=== PATIENT | female | born 1940 | race Caucasian/White ===

== ENCOUNTER 2021-06-28 10:07 | Observation (INO) ==
[2021-06-28 10:39] LABS: POC Blood Urea Nitrogen 36 mg/dL (6-20); POC CO2 31 mmol/L (22-30); POC Calcium, Ionized 1.22 mmEq/L (1.16-1.32); POC Chloride 93 mEq/L (96-108); POC Creatinine 1.5 mg/dL (0.6-1.2); POC Glucose, Random 164 mg/dL (70-105); POC Hematocrit 39 % (36-48); POC Potassium 4.7 mEql/L (3.3-5.1); POC Sodium 133 mEq/L (133-145)
[2021-06-28 11:06] LABS: Hematocrit 40.6 % (34.1-44.9); Hemoglobin 12.6 g/dL (11.2-15.7); Mean Cell Volume 95.8 fL (80.0-100.0); Mean Platelet Volume 10.4 fL (7.4-10.4); Platelet Count 326 K/mcL (140-440); RBC 4.24 M/mcL (3.59-5.38); Red Cell Distribution Width 12.2 % (11.5-14.5); WBC 10.4 K/mcL (4.5-11.0)
[2021-06-28] MEDS ORDERED: 0.9 % SODIUM CHLORIDE 1,000 ML IV ONE (11:18)
--- NOTE | 2021-06-28 11:18 | Emergency Department Note ---
Weakness HPI General Chief complaint: Weakness Time Seen by Provider: 06/28/21 10:14 Source: EMS Mode of arrival: EMS Limitations: no limitations History of Present Illness HPI Narrative: 81-year-old female with history of O2 dependent COPD presents with acute onset weakness and syncopal event this morning after getting up and walking to the bathroom. She does not recall losing consciousness, but did have a fall to the ground stating that her legs gave out. Family lifted her off the floor and assisted her with walking to the bathroom, and noted that her legs gave out a second time. She leaned forward on the bathroom sink and family noted that she syncopized. Family noted that she became pale and diaphoretic. She did not hit her head. Patient is not on blood thinners. Patient denies preceding heart palpitations, lightheadedness or dizziness. She does c/o frequent diarrhea over the last week. She was recently treated for acute COPD exacerbation and finished her antibiotics a week ago. She denies associated chest pain or shortness of breath. Denies cardiac history or CAD. Patient takes multiple antihypertensives, but has not taken these this morning. Patient has had multiple loose stools all week. She denies melena or hematochezia. No previous history of GI bleeding. Denies abdominal pain. Denies nausea or vomiting. Had an upper endoscopy in 04/2021 which showed no significant findings. NIHSS is 0. EKG shows sinus rhythm with rate of 67 bpm. QTC is 489 ms. There is no worrisome ST deviation to suggest ischemia. There are nonspecific ST findings with T wave inversions in aVL. Related Data Home Medications Medication Instructions Recorded Confirmed aspirin 81 mg tablet,delayed 81 mg PO QDAY tab 10/23/14 06/28/21 release magnesium oxide 400 mg PO QDAY cap 06/27/17 06/28/21 [id number] 4 cap PO TID cap 02/28/19 06/28/21 36,000-114,000-180,000 unit capsule,delay rel (Creon) omega 4-eqy-pee-fish oil 1,200 mg 1 cap PO DAILY 12/02/19 06/28/21 (144 mg-216 mg) capsule (Fish Oil) calcium carbonate 1,200 mg PO QDAY 08/06/20 06/28/21 cholecalciferol (vitamin D3) 25 2,000 unit PO QDAY cap 08/06/20 06/28/21 mcg (1,000 unit) capsule desipramine 10 mg tablet 10 mg PO QDAY tab 08/06/20 06/28/21 dextromethorphan-guaifenesin 1 tab PO .q6 PRN 09/18/20 06/28/21 [Mucinex DM] ipratropium bromide 42 mcg (0.06 2 spray INTRANASAL TID 09/18/20 06/28/21 %) nasal spray diphenhydramine 25 1 tab PO QHS PRN 06/28/21 06/28/21 mg-acetaminophen 500 mg tablet (Tylenol PM Extra Strength) Previous Rx's Medication Instructions Recorded diclofenac sodium 1 % topical gel 2 g TOPICAL QID #100 g 10/22/20 (Arthritis Pain (diclofenac)) tiotropium bromide 2.5 See Rx Instructions .ROUTE 01/05/21 mcg/actuation mist for inhalation .COMPLEX #12 g (Spiriva Respimat) omeprazole 40 mg capsule,delayed 40 mg PO QDAY #90 cap 02/01/21 release metoprolol succinate 25 mg 50 mg PO QDAY #180 tab 02/24/21 tablet,extended release 24 hr furosemide 20 mg tablet (Lasix) 20 mg PO QDAY #90 tab 03/23/21 fluoxetine 20 mg capsule (Prozac) 20 mg PO QDAY #90 cap 03/25/21 propranolol 60 mg capsule,24 60 mg PO QDAY #90 cap 03/29/21 hr,extended release ipratropium 20 mcg-albuterol 100 See Rx Instructions .ROUTE 05/29/21 mcg/actuation mist for inhalation .COMPLEX #4 g (Combivent Respimat) atorvastatin 80 mg tablet 80 mg PO QDAY #90 tab 06/04/21 fluticasone 250 mcg-salmeterol 50 1 inh INHALATION Q12H 90 Days #180 06/22/21 mcg/dose blistr powdr for ea inhalation (Advair Diskus) Allergies Allergy/AdvReac Type Severity Reaction Status Date / Time Raloxifene [From EVISTA] Allergy Unknown THROMBUS Verified 06/28/21 10:14 Review of Systems ROS ROS Narrative: Narrative: All systems ED: reviewed and negative except as stated. PFSH Narrative Patient History Narrative: Narrative: Medical/Surgical/Family History All Active Problems GIB (gastrointestinal bleeding) (Acute) Syncope (Acute) Orthostatic syncope (Acute) Cough (Acute) Tendonitis of wrist, right (Acute) Right wrist pain (Acute) Chronic headaches (Acute) COPD (chronic obstructive pulmonary disease) (Acute) Medicare annual wellness visit, subsequent (Acute) History of COPD (Acute) Sinusitis (Acute) Chest wall pain (Acute) Chest pain (Acute) Pancreatic insufficiency (Chronic) COPD exacerbation (Acute) Pneumonia (Acute) Hypoxia (Acute) Anemia in chronic kidney disease (CKD) (Chronic) HLD (hyperlipidemia) (Acute) Chronic kidney disease, stage III (moderate) (Chronic) Adult health maintenance (Chronic) Major depressive disorder, recurrent, in full remission (Chronic) Viral Warts (Chronic) Vitamin D deficiency (Chronic) Tobacco abuse (Chronic) Respiratory failure, chronic (Chronic) Renal osteodystrophy (Chronic) Pulmonary hypertension (Chronic) Peripheral neuropathy (Chronic) Osteoporosis (Chronic) Malignant neoplasm of trachea, bronchus, and lung (Chronic) Hyperlipidemia (Chronic) Hypertension, essential (Chronic) Esophagitis, reflux (Chronic) Emphysema lung (Chronic) Edema (Chronic) Diverticulosis of colon (Chronic) 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) DDD (degenerative disc disease) (Chronic) CHF (congestive heart failure) (Chronic) Colon polyps (Chronic) Chronic kidney disease, stage III (moderate) (Chronic) Bipolar I disorder, mild, current or most recent episode depressed, in full remission (Chronic) Back pain (Chronic) Anemia in chronic kidney disease (CKD) (Chronic) Alcohol abuse (Chronic) Medical History Adult health maintenance Alcohol abuse Anemia in chronic kidney disease (CKD) 10/08/2012 Anemia in chronic renal disease Back pain Mechanical low Bipolar I disorder, mild, current or most recent episode depressed, in full remission Cellulitis and abscess Cellulitis and abscess; upper arm and forearm Chest pain Chest wall pain CHF (congestive heart failure) started about 2013, 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 She is on Advair spiriva and combivent, able to carry out ADL , on oxygen therapy, no recent ER visits or prednisone use, continue same. Epigastric pain Esophagitis, reflux cough when lying down, additio of famotid should help. Hematuria History of COPD Hyperkalemia Hyperlipidemia on gemfibrozil and atorvastatin, add fish oil TG ok, LDL ok, Hypertension, essential Hyponatremia 06/04/2012 Hypopotassemia Hypopotassemia/Hypokalemia Lung nodule Major depressive disorder, recurrent episode, in full remission Malignant neoplasm of trachea, bronchus, and lung Medicare annual wellness visit, subsequent Muscle spasm Obstructive chronic bronchitis with acute exacerbation 08/12/2013 Osteoporosis Otalgia Pain in limb Pancreatic insufficiency Peripheral neuropathy Pulmonary hypertension 06/04/2012 Renal osteodystrophy Respiratory failure, chronic 07/07/2014; Type 2, on oxygen, goal oxygen 87-94 Sinusitis Tobacco abuse Tobacco abuse - smoking Quit smoking May 2012 Type 2 diabetes mellitus with neurological manifestation Urinary tract disorder Urethral and urinary tract disorder Viral Warts refer to dermatology for excision Vitamin D deficiency Weight gain, abnormal 08/12/2013 Surgical History History of back surgery 2 previous lower back surgeries 1983 and the other 1985 History of cholecystectomy 1974 History of colonoscopy 11/19/2013; TA History of hysterectomy 1973 Family History Sister Malignant neoplasm of breast 2 sisters Diabetes mellitus 1 sister Father of unknown cause Mother , in her 90s of unknown cause Brother , from thrombophlebitis Presence of cardiac pacemaker Thrombophlebitis Social History Smoking Status: Former smoker Alcohol Intake Frequency: former alcohol drinker Substance Use: does not use Exam Narrative Narrative: General: AOx3, NAD, nontoxic appearing. Pleasant and conversant. HEENT: PERRL, EOMI, normocephalic. Moist mucous membranes. Normal facies and normal dentition. Chest: Symmetric, no pain to palpation Respiratory: Lungs clear to auscultation bilaterally. No respiratory distress. Unlabored breathing. Heart: Regular rate and rhythm, no murmurs/clicks/rubs. Abdomen: Non-tender, Non distended, normal bowel tones. No organomegaly. No rebound tenderness Extremities: Warm and well perfused. No edema. DP 2+ bilaterally. No venous stasis. Neuro: No focal deficits. Cranial nerves II-XII grossly normal. Skin: Warm dry, no rashes or lesions, no cyanosis. Psych: Normal mood and affect Heme/Lymph: No abnormal bruising General Limitations: no limitations Course Course Course Narrative: 81-year-old female presents with weakness and witnessed syncopal event this morning without head trauma. Reevaluation(s) Reevaluation #1: Basic labs, EKG, troponin, chest x-ray, fecal leukocyte and C. difficile Check orthostatics Time: 11:47 Reevaluation #2: Orthostatics are positive---> give 1 L IV fluids Patient has had 3 loose stools since her evaluation here in the ER department. The technical services specialist got her up to go to the bathroom and she had a near syncopal event. Stool was noted to have joanna bright red blood and is guaiac positive. CBC H&H is 12.6/40.6--> given she is significantly symptomatic we will type and screen and add on a lactate to rule out ischemic bowel. CMP with elevated BUN of 36, creatinine is 1.5, which is her baseline, and blood glucose is 166. Chest x-ray without infiltrates and bilateral atelectasis Reevaluation #3: Case has been discussed with Dr. Segura who agrees with admission and colonoscopy tomorrow. DDx would be infectious colitis, ischemic bowel, bleeding diverticuli, other. He has asked me to add on enteric stool culture. Fecal leukocyte and C. difficile still pending. Lactic acid is 1.1. Vital Signs Vital signs: Vital Signs Temperature 96.8 F L 06/28/21 10:09 Pulse Rate 71 06/28/21 10:09 Respiratory Rate 18 06/28/21 10:09 Blood Pressure 117/69 06/28/21 10:09 Pulse Oximetry (%) 94 06/28/21 10:09 Temperature 96.8 F L 06/28/21 10:09 Pulse Rate 65 06/28/21 12:10 Respiratory Rate 19 06/28/21 12:10 Blood Pressure 129/60 06/28/21 12:10 Pulse Oximetry (%) 96 06/28/21 12:10 [facility] MDM Narrative Medical decision making narrative: Acute GI bleed Syncopal event Positive orthostatic Patient has proven that she has a GI bleed here in the ER. DDx includes infectious, ischemic, bleeding diverticuli, other. Patient has been typed and screened. Stool enterics, C. difficile, fecal leukocyte are all pending. Patient is given 1 L of IV fluids, we will continue these. Dr. Segura would like the patient admitted and she will undergo colonoscopy tomorrow. I have reached out to the hospitalist for admission. Patient is been accepted for observation admission. Lab Data Result diagrams: 06/28/21 10:25 Labs: Lab Results 06/28/21 06/28/21 06/28/21 Range/Units 10:25 10:25 11:22 WBC 10.4 (4.5-11.0) K/mcL RBC 4.24 (3.59-5.38) M/mcL Hgb 12.6 (11.2-15.7) g/dL Hct 40.6 (34.1-44.9) % POC Hct 39 (36-48) % MCV 95.8 (80.0-100.0) fL MCH 29.7 (26.0-34.0) pg MCHC 31.0 (31.0-36.0) g/dL RDW 12.2 (11.5-14.5) % Plt Count 326 (140-440) K/mcL MPV 10.4 (7.4-10.4) fL Seg Neutrophils % 66 (38-78) % Lymphocytes % 29 (15-49) % Monocytes % (Manual) 2 (1-12) % Eosinophils % (Manual) 3 (0-7) % Platelet Estimate Normal (Normal) RBC Morphology Normal (Normal) VBG Lactic Acid (0.5-2.0) mmol/L POC Sodium 133 (133-145) mEq/L POC Potassium 4.7 (3.3-5.1) mEql/L POC Chloride 93 L (96-108) mEq/L POC Total CO2 31 H (22-30) mmol/L POC BUN 36 H (6-20) mg/dL POC Creatinine 1.5 H (0.6-1.2) mg/dL POC Glucose 164 H (70-105) mg/dL POC WB Ioniz Calcium 1.22 (1.16-1.32) mmEq/L TSH (0.27-5.01) uIU/mL POC Troponin I 0 L (0.02-0.08) ng/mL 06/28/21 06/28/21 Range/Units 11:22 12:01 WBC (4.5-11.0) K/mcL RBC (3.59-5.38) M/mcL Hgb (11.2-15.7) g/dL Hct (34.1-44.9) % POC Hct (36-48) % MCV (80.0-100.0) fL MCH (26.0-34.0) pg MCHC (31.0-36.0) g/dL RDW (11.5-14.5) % Plt Count (140-440) K/mcL MPV (7.4-10.4) fL Seg Neutrophils % (38-78) % Lymphocytes % (15-49) % Monocytes % (Manual) (1-12) % Eosinophils % (Manual) (0-7) % Platelet Estimate (Normal) RBC Morphology (Normal) VBG Lactic Acid 1.1 (0.5-2.0) mmol/L POC Sodium (133-145) mEq/L POC Potassium (3.3-5.1) mEql/L POC Chloride (96-108) mEq/L POC Total CO2 (22-30) mmol/L POC BUN (6-20) mg/dL POC Creatinine (0.6-1.2) mg/dL POC Glucose (70-105) mg/dL POC WB Ioniz Calcium (1.16-1.32) mmEq/L TSH 3.26 (0.27-5.01) uIU/mL POC Troponin I (0.02-0.08) ng/mL Discharge Plan Patient/Caregiver Discharge Instructions Pt seen by PROCESSING TECH/PA only: Yes Clinical Impression: GIB (gastrointestinal bleeding), Syncope, Orthostatic syncope Patient Disposition: Xfer As Outpt/Obs ([facility]) Follow up with: Jennifer Seay DO [Primary Care Provider] - Prescriptions: No Action Spiriva Respimat 2.5 mcg/actuation mist See Rx Instructions .ROUTE .COMPLEX Qty: 12 6RF Dose Instruction: USE 2 INHALATIONS DAILY (RINSE MOUTH AFTER EACH USE) Rx Instructions: USE 2 INHALATIONS DAILY (RINSE MOUTH AFTER EACH USE) omeprazole 40 mg capsule,delayed release(DR/EC) 40 mg PO QDAY Qty: 90 1RF metoprolol succinate 25 mg tablet extended release 24 hr 50 mg PO QDAY Qty: 180 0RF furosemide [Lasix] 20 mg tablet 20 mg PO QDAY Qty: 90 1RF fluoxetine [Prozac] 20 mg capsule 20 mg PO QDAY Qty: 90 1RF propranolol 60 mg capsule,extended release 24 hr 60 mg PO QDAY Qty: 90 1RF Combivent Respimat 20-100 mcg/actuation mist See Rx Instructions .ROUTE .COMPLEX Qty: 4 1RF Dose Instruction: USE 1 INHALATION FOUR TIMES A DAY NEEDED FOR SHORTNESS OF BREATH Rx Instructions: USE 1 INHALATION FOUR TIMES A DAY NEEDED FOR SHORTNESS OF BREATH atorvastatin 80 mg tablet 80 mg PO QDAY Qty: 90 1RF fluticasone propion-salmeterol [Advair Diskus] 250-50 mcg/dose blister with device 1 inh INHALATION Q12H 90 Days Qty: 180 0RF [id number] 36,000-114,000-180,000 unit capsule,delay rel 36,000-114,000- 180,000 unit capsule,delayed release(DR/EC) 4 cap PO TID 0RF Rx Instructions: and 2 pills with snacks aspirin 81 mg tablet,delayed release (DR/EC) 81 mg PO QDAY 0RF magnesium oxide 400 mg capsule 400 mg PO QDAY 0RF cholecalciferol (vitamin D3) 25 mcg (1,000 unit) capsule 2,000 unit PO QDAY 0RF Rx Instructions: administer with meals ipratropium bromide 42 mcg (0.06 %) spray,non-aerosol 2 spray intranasal TID 0RF Rx Instructions: administer into each nostril dextromethorphan-guaifenesin [Mucinex DM] 1 tab PO .q6 PRN (Reason: PRN) 0RF desipramine 10 mg tablet 10 mg PO QDAY 0RF calcium carbonate 1,200 mg PO QDAY 0RF diclofenac sodium [Arthritis Pain (diclofenac)] 1 % gel 2 g topical QID Qty: 100 0RF Rx Instructions: apply to single elbow, wrist or hand; for hand includes palm/fingers/back of hand omega 8-ine-mml-fish oil [Fish Oil] 1,200 (144-216) mg Capsule 1 cap PO DAILY 0RF diphenhydramine-acetaminophen [Tylenol PM Extra Strength] 25-500 mg Tablet 1 tab PO QHS PRN (Reason: Sleep) 0RF
[2021-06-28] MEDS ORDERED: ONDANSETRON 4 MG/2 ML VIAL IV ONE (11:40)
[2021-06-28 11:58] LABS: Eosinophils % (Manual) 3 % (0-7); Lymphocytes % 29 % (15-49); Monocytes % (Manual) 2 % (1-12); Platelet Estimate NORMAL (Normal); RBC Morphology NORMAL (Normal); Segmented Neutrophils % 66 % (38-78)
[2021-06-28] MEDS ORDERED: 0.9 % SODIUM CHLORIDE 250 ML IV SCH (12:00)
--- NOTE | 2021-06-28 12:16 | XRay Report ---
CLINICAL INFORMATION: Cough COMPARISON: 01/23/2020 TECHNIQUE: PA and Lateral views FINDINGS: The heart size, mediastinum and pulmonary vessels are unremarkable. COPD with moderate left and moderate right basilar fibrosis or atelectasis noted. No definite infiltrates.. There are no effusions. The bones and soft tissues are within normal limits. IMPRESSION: Moderate left and mild right basilar scarring and/or atelectasis. No definite infiltrate Interpreted and Authenticated by: Tommy Santo 06/28/21
[2021-06-28 13:00] LABS: Thyroid Stimulating Hormone 3.26 uIU/mL (0.27-5.01)
--- NOTE | 2021-06-28 13:21 | Internal Med History&Physical ---
HPI History of Present Illness Patient information: Note initiated : 06/28/21 at 1:15 pm Service Date, if different from initiated Date: [] Patient: Keyla Levy a 81 y/o F admitted on for weakness. Chief Complaint: [] History of present illness: Ms. Levy is a 81 year old F presented to ED with Weakness and Fall/Syncope. Denies hitting her head. Denies chest pain shortness of breath. She has had diarrhea started about a week ago after she got on antibiotics for an upper respiratory tract infection. The diarrhea seemed to improve but then worsened again today. Sessile she has a little bit of a stomachache. In the ED she was found to have bright red blood in stool in ED, FOBT positive in ED. She was also Orthostatic in the ED. Dr. Muñoz was contacted and will do endoscopy in AM. c. diff and other stool studies are pending. Review of Systems: Pertinent positives as above plus headache. denies fever/chills/vomiting/chest pain/cough/dyspnea. Remaining 10 point review of system reviewed negative PFSH PFSH All Active Problems GIB (gastrointestinal bleeding) (Acute) Syncope (Acute) Orthostatic syncope (Acute) Cough (Acute) Tendonitis of wrist, right (Acute) Right wrist pain (Acute) Chronic headaches (Acute) COPD (chronic obstructive pulmonary disease) (Acute) Medicare annual wellness visit, subsequent (Acute) History of COPD (Acute) Sinusitis (Acute) Chest wall pain (Acute) Chest pain (Acute) Pancreatic insufficiency (Chronic) COPD exacerbation (Acute) Pneumonia (Acute) Hypoxia (Acute) Anemia in chronic kidney disease (CKD) (Chronic) HLD (hyperlipidemia) (Acute) Chronic kidney disease, stage III (moderate) (Chronic) Adult health maintenance (Chronic) Major depressive disorder, recurrent, in full remission (Chronic) Viral Warts (Chronic) Vitamin D deficiency (Chronic) Tobacco abuse (Chronic) Respiratory failure, chronic (Chronic) Renal osteodystrophy (Chronic) Pulmonary hypertension (Chronic) Peripheral neuropathy (Chronic) Osteoporosis (Chronic) Malignant neoplasm of trachea, bronchus, and lung (Chronic) Hyperlipidemia (Chronic) Hypertension, essential (Chronic) Esophagitis, reflux (Chronic) Emphysema lung (Chronic) Edema (Chronic) Diverticulosis of colon (Chronic) 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) DDD (degenerative disc disease) (Chronic) CHF (congestive heart failure) (Chronic) Colon polyps (Chronic) Chronic kidney disease, stage III (moderate) (Chronic) Bipolar I disorder, mild, current or most recent episode depressed, in full remission (Chronic) Back pain (Chronic) Anemia in chronic kidney disease (CKD) (Chronic) Alcohol abuse (Chronic) Medical History Adult health maintenance Alcohol abuse Anemia in chronic kidney disease (CKD) 10/08/2012 Anemia in chronic renal disease Back pain Mechanical low Bipolar I disorder, mild, current or most recent episode depressed, in full remission Cellulitis and abscess Cellulitis and abscess; upper arm and forearm Chest pain Chest wall pain CHF (congestive heart failure) started about 2013, patient coordinator 10/2016 Chronic headaches Chronic kidney disease, stage III (moderate) Chronic kidney disease, stage III (moderate) Colon polyps COPD (chronic obstructive pulmonary disease) Cough 01/04/2012 DDD (degenerative disc disease) Diverticulosis of colon 11/19/2013 Edema Emphysema lung Emphysema NEC; Secondary to smoking. She is on Advair spiriva and combivent, able to carry out ADL , on oxygen therapy, no recent ER visits or prednisone use, continue same. Epigastric pain Esophagitis, reflux cough when lying down, additio of famotid should help. Hematuria History of COPD Hyperkalemia Hyperlipidemia on gemfibrozil and atorvastatin, add fish oil TG ok, LDL ok, Hypertension, essential Hyponatremia 06/04/2012 Hypopotassemia Hypopotassemia/Hypokalemia Lung nodule Major depressive disorder, recurrent episode, in full remission Malignant neoplasm of trachea, bronchus, and lung Medicare annual wellness visit, subsequent Muscle spasm Obstructive chronic bronchitis with acute exacerbation 08/12/2013 Osteoporosis Otalgia Pain in limb Pancreatic insufficiency Peripheral neuropathy Pulmonary hypertension 06/04/2012 Renal osteodystrophy Respiratory failure, chronic 07/07/2014; Type 2, on oxygen, goal oxygen 87-94 Sinusitis Tobacco abuse Tobacco abuse - smoking Quit smoking May 2012 Type 2 diabetes mellitus with neurological manifestation Urinary tract disorder Urethral and urinary tract disorder Viral Warts refer to dermatology for excision Vitamin D deficiency Weight gain, abnormal 08/12/2013 Surgical History History of back surgery 2 previous lower back surgeries 1983 and the other 1985 History of cholecystectomy 1974 History of colonoscopy 11/19/2013; TA History of hysterectomy 1973 Family History Sister Malignant neoplasm of breast 2 sisters Diabetes mellitus 1 sister Father of unknown cause Mother , in her 90s of unknown cause Brother , from thrombophlebitis Presence of cardiac pacemaker Thrombophlebitis Social History marital status: smoking status: Former smoker quit date: 05/19/13 pack-years: 50 alcohol intake frequency: former alcohol drinker substance use type: does not use MEDS/ALLERGIES Home Medications and Allergies Home Medications Medication Instructions Recorded Confirmed Type aspirin 81 mg tablet,delayed 81 mg PO QDAY tab 10/23/14 06/28/21 History release magnesium oxide 400 mg PO QDAY cap 06/27/17 06/28/21 History [id number] 4 cap PO TID cap 02/28/19 06/28/21 History 36,000-114,000-180,000 unit capsule,delay rel (Creon) omega 6-qgc-gao-fish oil 1,200 mg 1 cap PO DAILY 12/02/19 06/28/21 History (144 mg-216 mg) capsule (Fish Oil) calcium carbonate 1,200 mg PO QDAY 08/06/20 06/28/21 History cholecalciferol (vitamin D3) 25 2,000 unit PO QDAY cap 08/06/20 06/28/21 History mcg (1,000 unit) capsule desipramine 10 mg tablet 10 mg PO QDAY tab 08/06/20 06/28/21 History dextromethorphan-guaifenesin 1 tab PO .q6 PRN 09/18/20 06/28/21 History [Mucinex DM] ipratropium bromide 42 mcg (0.06 2 spray INTRANASAL TID 09/18/20 06/28/21 History %) nasal spray diclofenac sodium 1 % topical gel 2 g TOPICAL QID #100 g 10/22/20 06/28/21 Rx (Arthritis Pain (diclofenac)) tiotropium bromide 2.5 See Rx Instructions .ROUTE 01/05/21 06/28/21 Rx mcg/actuation mist for inhalation .COMPLEX #12 g (Spiriva Respimat) omeprazole 40 mg capsule,delayed 40 mg PO QDAY #90 cap 02/01/21 06/28/21 Rx release metoprolol succinate 25 mg 50 mg PO QDAY #180 tab 02/24/21 06/28/21 Rx tablet,extended release 24 hr furosemide 20 mg tablet (Lasix) 20 mg PO QDAY #90 tab 03/23/21 06/28/21 Rx fluoxetine 20 mg capsule (Prozac) 20 mg PO QDAY #90 cap 03/25/21 06/28/21 Rx propranolol 60 mg capsule,24 60 mg PO QDAY #90 cap 03/29/21 06/28/21 Rx hr,extended release ipratropium 20 mcg-albuterol 100 See Rx Instructions .ROUTE 05/29/21 06/28/21 Rx mcg/actuation mist for inhalation .COMPLEX #4 g (Combivent Respimat) atorvastatin 80 mg tablet 80 mg PO QDAY #90 tab 06/04/21 06/28/21 Rx fluticasone 250 mcg-salmeterol 50 1 inh INHALATION Q12H 90 Days #180 06/22/21 06/28/21 Rx mcg/dose blistr powdr for ea inhalation (Advair Diskus) diphenhydramine 25 1 tab PO QHS PRN 06/28/21 06/28/21 History mg-acetaminophen 500 mg tablet (Tylenol PM Extra Strength) Allergies Allergy/AdvReac Type Severity Reaction Status Date / Time Raloxifene [From EVISTA] Allergy Unknown THROMBUS Verified 06/28/21 10:14 EXAM Constitutional Vitals: Temp Pulse Resp BP Pulse Ox 96.8 F L 74 23 H 141/59 98 06/28/21 10:09 06/28/21 13:01 06/28/21 13:01 06/28/21 13:01 06/28/21 13:01 Exam: General: Alert, Awake, No acute Distress Eyes/N/T: EOMI, PERRL, Head/Neck: neck supple, normocephalic atraumatic CV: RRR, No murmurs, normal s1/s2 Pulm: mild b/l wheezing, no rhonchi/rales Abd: soft, nontender, +BS x4 Ext: no clubbing/cyanosis/edema Neuro: Alert, no focal deficits, moves all extremities, CN 2-12 grossly intact, symmetrical strength b/l upper/lower, sensations intact b/l upper/lower Skin: warm/dry DATA Data Completed and Pending Labs: Labs from last 24 hours 06/28/21 06/28/21 06/28/21 12:01 11:22 11:22 WBC RBC Hgb Hct POC Hct MCV MCH MCHC RDW Plt Count MPV Seg Neutrophils % Lymphocytes % Monocytes % (Manual) Eosinophils % (Manual) Platelet Estimate RBC Morphology VBG Lactic Acid 1.1 POC Sodium POC Potassium POC Chloride POC Total CO2 POC BUN POC Creatinine POC Glucose POC WB Ioniz Calcium TSH 3.26 POC Troponin I 0 L 06/28/21 06/28/21 10:25 10:25 WBC 10.4 RBC 4.24 Hgb 12.6 Hct 40.6 POC Hct 39 MCV 95.8 MCH 29.7 MCHC 31.0 RDW 12.2 Plt Count 326 MPV 10.4 Seg Neutrophils % 66 Lymphocytes % 29 Monocytes % (Manual) 2 Eosinophils % (Manual) 3 Platelet Estimate Normal RBC Morphology Normal VBG Lactic Acid POC Sodium 133 POC Potassium 4.7 POC Chloride 93 L POC Total CO2 31 H POC BUN 36 H POC Creatinine 1.5 H POC Glucose 164 H POC WB Ioniz Calcium 1.22 TSH POC Troponin I A/P Narrative A/P Narrative: A: *GI Bleed, likely Lower: *Orthostatic Hypotension/Syncope: *Generalized weakness/Fallin/2 above *COPD w/chronic hypoxia (2L@home): *Hyperkalemia, mild: *CKD IIIb: *HTN: *Depression/Anxiety/bipolar: *GERD: P: -IVF, clear liquid diet -Dr. Muñoz for consult -hold ASA -hold home Lasix for orthostatic hypotension, hold BB today -home O2 supp -cont psych meds -pt/ot -CM for placement needs -ppx: SCD (no chemical d/t bleeding) / home ppi Time Spent With Patient Time: Total time spent is greater than 50% in coordination of care (as documented) at patient's floor/unit and/or counseling patient:
[2021-06-28] MEDS ORDERED: POTASSIUM CHLORIDE 40 MEQ in DEXTROSE 5% IN WATER 500 ML IV PRN (13:52)
[2021-06-28] MEDS ORDERED: ONDANSETRON 4 MG/2 ML VIAL IV PRN (13:52)
[2021-06-28] MEDS ORDERED: POTASSIUM CHLORIDE 20 MEQ TABLET PO PRN ×2 (13:52)
[2021-06-28] MEDS ORDERED: SODIUM POLYSTYRENE SULFONATE 15 GM/60 ML SUSPENSION PO ONE (13:52)
[2021-06-28] MEDS ORDERED: hydrALAZINE 20 MG/ML VIAL IV PRN (13:52)
[2021-06-28] MEDS ORDERED: IPRATROPIUM/ALBUTEROL 3 ML AMPUL.NEB NEB PRN (13:52)
[2021-06-28] MEDS ORDERED: MAGNESIUM SULFATE 2 GM/50 ML BAG IV PRN (13:52)
[2021-06-28] MEDS ORDERED: ACETAMINOPHEN 325 MG TABLET PO PRN (13:52)
--- NOTE | 2021-06-28 15:29 | Internal Medicine Consult Note ---
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 Keyla had been on a 5 day course of Augmentin for URI and developed diarrhea for a few days. However, for the last 2 days, her daughter (who is also her caregiver) reports she has been constipated. This morning, Keyla felt the urge to have a BM and had a syncopal episode, prompting her daughter to call EMS. She had a large BM at the hospital where [facility] noted flecks of red blood in the stool and guaiac was positive. Stool has been collected with c. difficile assay, fecal leukocyte smear, and enteric pathogen panel are pending. Last colonoscopy in 2019 revealed adenomatous colon polyps, which were removed. cc:: CC: Darnell Olson Review of Systems ROS unobtainable: due to mental status PFSH PFSH All Active Problems GIB (gastrointestinal bleeding) (Acute) Syncope (Acute) Orthostatic syncope (Acute) Cough (Acute) Tendonitis of wrist, right (Acute) Right wrist pain (Acute) Chronic headaches (Acute) COPD (chronic obstructive pulmonary disease) (Acute) Medicare annual wellness visit, subsequent (Acute) History of COPD (Acute) Sinusitis (Acute) Chest wall pain (Acute) Chest pain (Acute) Pancreatic insufficiency (Chronic) COPD exacerbation (Acute) Pneumonia (Acute) Hypoxia (Acute) Anemia in chronic kidney disease (CKD) (Chronic) HLD (hyperlipidemia) (Acute) Chronic kidney disease, stage III (moderate) (Chronic) Adult health maintenance (Chronic) Major depressive disorder, recurrent, in full remission (Chronic) Viral Warts (Chronic) Vitamin D deficiency (Chronic) Tobacco abuse (Chronic) Respiratory failure, chronic (Chronic) Renal osteodystrophy (Chronic) Pulmonary hypertension (Chronic) Peripheral neuropathy (Chronic) Osteoporosis (Chronic) Malignant neoplasm of trachea, bronchus, and lung (Chronic) Hyperlipidemia (Chronic) Hypertension, essential (Chronic) Esophagitis, reflux (Chronic) Emphysema lung (Chronic) Edema (Chronic) Diverticulosis of colon (Chronic) 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) DDD (degenerative disc disease) (Chronic) CHF (congestive heart failure) (Chronic) Colon polyps (Chronic) Chronic kidney disease, stage III (moderate) (Chronic) Bipolar I disorder, mild, current or most recent episode depressed, in full remission (Chronic) Back pain (Chronic) Anemia in chronic kidney disease (CKD) (Chronic) Alcohol abuse (Chronic) Medical History Adult health maintenance Alcohol abuse Anemia in chronic kidney disease (CKD) 10/08/2012 Anemia in chronic renal disease Back pain Mechanical low Bipolar I disorder, mild, current or most recent episode depressed, in full remission Cellulitis and abscess Cellulitis and abscess; upper arm and forearm Chest pain Chest wall pain CHF (congestive heart failure) started about 2013, 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 She is on Advair spiriva and combivent, able to carry out ADL , on oxygen therapy, no recent ER visits or prednisone use, continue same. Epigastric pain Esophagitis, reflux cough when lying down, additio of famotid should help. Hematuria History of COPD Hyperkalemia Hyperlipidemia on gemfibrozil and atorvastatin, add fish oil TG ok, LDL ok, Hypertension, essential Hyponatremia 06/04/2012 Hypopotassemia Hypopotassemia/Hypokalemia Lung nodule Major depressive disorder, recurrent episode, in full remission Malignant neoplasm of trachea, bronchus, and lung Medicare annual wellness visit, subsequent Muscle spasm Obstructive chronic bronchitis with acute exacerbation 08/12/2013 Osteoporosis Otalgia Pain in limb Pancreatic insufficiency Peripheral neuropathy Pulmonary hypertension 06/04/2012 Renal osteodystrophy Respiratory failure, chronic 07/07/2014; Type 2, on oxygen, goal oxygen 87-94 Sinusitis Tobacco abuse Tobacco abuse - smoking Quit smoking May 2012 Type 2 diabetes mellitus with neurological manifestation Urinary tract disorder Urethral and urinary tract disorder Viral Warts refer to dermatology for excision Vitamin D deficiency Weight gain, abnormal 08/12/2013 Surgical History History of back surgery 2 previous lower back surgeries 1983 and the other 1985 History of cholecystectomy 1974 History of colonoscopy 11/19/2013; TA History of hysterectomy 1973 Family History Sister Malignant neoplasm of breast 2 sisters Diabetes mellitus 1 sister Father of unknown cause Mother , in her 90s of unknown cause Brother , from thrombophlebitis Presence of cardiac pacemaker Thrombophlebitis Social History marital status: smoking status: Former smoker quit date: 05/19/13 pack-years: 50 alcohol intake frequency: former alcohol drinker substance use type: does not use MEDS/ALLERGIES Home Medications and Allergies Home Medications Medication Instructions Recorded Confirmed Type aspirin 81 mg tablet,delayed 81 mg PO QDAY tab 10/23/14 06/28/21 History release magnesium oxide 400 mg PO QDAY cap 06/27/17 06/28/21 History [id number]-hzyrinqx-[id number] 4 cap PO TID cap 02/28/19 06/28/21 History 36,000-114,000-180,000 unit capsule,delay rel (Creon) omega 5-gbw-qma-fish oil 1,200 mg 1 cap PO DAILY 12/02/19 06/28/21 History (144 mg-216 mg) capsule (Fish Oil) calcium carbonate 1,200 mg PO QDAY 08/06/20 06/28/21 History cholecalciferol (vitamin D3) 25 2,000 unit PO QDAY cap 08/06/20 06/28/21 History mcg (1,000 unit) capsule desipramine 10 mg tablet 10 mg PO QDAY tab 08/06/20 06/28/21 History dextromethorphan-guaifenesin 1 tab PO .q6 PRN 09/18/20 06/28/21 History [Mucinex DM] ipratropium bromide 42 mcg (0.06 2 spray INTRANASAL TID 09/18/20 06/28/21 History %) nasal spray diclofenac sodium 1 % topical gel 2 g TOPICAL QID #100 g 10/22/20 06/28/21 Rx (Arthritis Pain (diclofenac)) tiotropium bromide 2.5 See Rx Instructions .ROUTE 01/05/21 06/28/21 Rx mcg/actuation mist for inhalation .COMPLEX #12 g (Spiriva Respimat) omeprazole 40 mg capsule,delayed 40 mg PO QDAY #90 cap 02/01/21 06/28/21 Rx release metoprolol succinate 25 mg 50 mg PO QDAY #180 tab 02/24/21 06/28/21 Rx tablet,extended release 24 hr furosemide 20 mg tablet (Lasix) 20 mg PO QDAY #90 tab 03/23/21 06/28/21 Rx fluoxetine 20 mg capsule (Prozac) 20 mg PO QDAY #90 cap 03/25/21 06/28/21 Rx propranolol 60 mg capsule,24 60 mg PO QDAY #90 cap 03/29/21 06/28/21 Rx hr,extended release ipratropium 20 mcg-albuterol 100 See Rx Instructions .ROUTE 05/29/21 06/28/21 Rx mcg/actuation mist for inhalation .COMPLEX #4 g (Combivent Respimat) atorvastatin 80 mg tablet 80 mg PO QDAY #90 tab 06/04/21 06/28/21 Rx fluticasone 250 mcg-salmeterol 50 1 inh INHALATION Q12H 90 Days #180 06/22/21 06/28/21 Rx mcg/dose blistr powdr for ea inhalation (Advair Diskus) diphenhydramine 25 1 tab PO QHS PRN 06/28/21 06/28/21 History mg-acetaminophen 500 mg tablet (Tylenol PM Extra Strength) Allergies Allergy/AdvReac Type Severity Reaction Status Date / Time Raloxifene [From EVISTA] Allergy Unknown THROMBUS Verified 06/28/21 10:14 EXAM Constitutional Vitals: Temp Pulse Resp BP Pulse Ox 96.8 F L 72 21 136/77 96 06/28/21 10:09 06/28/21 14:31 06/28/21 14:31 06/28/21 14:31 06/28/21 14:31 General appearance: average body habitus and no acute distress Head Head exam: Present atraumatic, normal inspection and normocephalic Eye Eye exam: Present normal appearance Neck Neck exam: Present normal inspection Respiratory Respiratory exam: Present normal respiratory exam and CTAB; Absent accessory muscle use GI/Abdominal GI/Abdominal exam: Present normal bowel sounds; Absent hernia, mass, organomegaly or tenderness Expanded GI/Abdominal Exam GI/Abdominal exam: Absent ascites Neurological Exam Additional comments: patient sleepy, but rousable. DATA Data Completed and Pending Labs: Labs from last 24 hours 06/28/21 06/28/21 06/28/21 12:01 11:22 11:22 WBC RBC Hgb Hct POC Hct MCV MCH MCHC RDW Plt Count MPV Seg Neutrophils % Lymphocytes % Monocytes % (Manual) Eosinophils % (Manual) Platelet Estimate RBC Morphology VBG Lactic Acid 1.1 POC Sodium POC Potassium POC Chloride POC Total CO2 POC BUN POC Creatinine POC Glucose POC WB Ioniz Calcium TSH 3.26 POC Troponin I 0 L 06/28/21 06/28/21 10:25 10:25 WBC 10.4 RBC 4.24 Hgb 12.6 Hct 40.6 POC Hct 39 MCV 95.8 MCH 29.7 MCHC 31.0 RDW 12.2 Plt Count 326 MPV 10.4 Seg Neutrophils % 66 Lymphocytes % 29 Monocytes % (Manual) 2 Eosinophils % (Manual) 3 Platelet Estimate Normal RBC Morphology Normal VBG Lactic Acid POC Sodium 133 POC Potassium 4.7 POC Chloride 93 L POC Total CO2 31 H POC BUN 36 H POC Creatinine 1.5 H POC Glucose 164 H POC WB Ioniz Calcium 1.22 TSH POC Troponin I A/P Assessment and plan (1) GIB (gastrointestinal bleeding): Assessment and plan: I reviewed her case with Dr. Muñoz. She will be admitted and prepped for inpatient colonoscopy. Differential diagnosis includes ischemic colitis, infectious colitis including c difficile, diverticular bleed (less likely), etc. Status: Acute (2) Syncope: Status: Acute Time Spent With Patient Time: Total time spent is greater than 50% in coordination of care (as documented) at patient's floor/unit and/or counseling patient: Total time spent with greater than 50% in coordination of care (as documented) at patient's floor/unit and/or counseling patient:: 15 - 24 minutes
[2021-06-28] MEDS: 0.9 % SODIUM CHLORIDE 10 ML SYRINGE IV SCH ×2 (16:06→21:02)
[2021-06-28] MEDS: 0.9 % SODIUM CHLORIDE 1,500 ML IV SCH (16:12)
[2021-06-28] MEDS: LIPASE/PROTEASE/AMYLASE 1 CAP CAPSULE PO SCH (16:38)
[2021-06-28] MEDS: DICLOFENAC SODIUM 1% TOPICAL GEL TOPICAL SCH ×2 (16:38→21:02)
[2021-06-28] MEDS ORDERED: diphenhydrAMINE 25 MG CAPSULE PO PRN (21:00)
[2021-06-28] MEDS: FLUTICASONE/SALMETEROL 250/50 INHALER #14 INH SCH (21:02)
[2021-06-28] MEDS ORDERED: KETAMINE 50 MG/ML ML IV PRN (21:12)
[2021-06-28] MEDS ORDERED: MIDAZOLAM 2 MG/2 ML VIAL IV SCH (21:15)
[2021-06-28] MEDS ORDERED: PEG 3350/NA SULF,BICARB,CL/KCL 4,000 ML ORAL.SOL PO SCH (21:15)
[2021-06-28] MEDS ORDERED: PROPOFOL 200 MG/20 ML VIAL IV SCH (21:15)
[2021-06-28 22:10] LABS: Basophils # (Auto) 0.02 K/mcL (0.00-0.30); Basophils % (Auto) 0.1 % (0.0-2.0); Eosinophils # (Auto) 0.07 K/mcL (0.00-0.70); Eosinophils % (Auto) 0.5 % (0.0-7.0); Hematocrit 35.7 % (34.1-44.9); Hemoglobin 11.6 g/dL (11.2-15.7); Lymphocytes # (Auto) 1.26 K/mcL (1.50-4.80); Lymphocytes % (Auto) 8.7 % (15.5-49.0); Mean Cell Volume 93.9 fL (80.0-100.0); Mean Corpuscular HGB Conc 32.5 g/dL (31.0-36.0); Mean Platelet Volume 10.1 fL (7.4-10.4); Monocytes # (Auto) 0.89 K/mcL (0.10-0.90); Monocytes % (Auto) 6.1 % (1.0-12.0); Neutrophils % (Auto) 84.6 % (38.0-78.0); Platelet Count 265 K/mcL (140-440); Red Cell Distribution Width 12.1 % (11.5-14.5); WBC 14.5 K/mcL (4.5-11.0)
[2021-06-29] MEDS: 0.9 % SODIUM CHLORIDE 10 ML SYRINGE IV SCH ×3 (04:29→20:21)
[2021-06-29] MEDS: LIPASE/PROTEASE/AMYLASE 1 CAP CAPSULE PO SCH ×3 (07:15→17:08)
[2021-06-29] MEDS: DICLOFENAC SODIUM 1% TOPICAL GEL TOPICAL SCH ×4 (07:44→20:12)
[2021-06-29 07:45] LABS: Basophils # (Auto) 0.02 K/mcL (0.00-0.30); Basophils % (Auto) 0.1 % (0.0-2.0); Eosinophils # (Auto) 0.05 K/mcL (0.00-0.70); Eosinophils % (Auto) 0.4 % (0.0-7.0); Hematocrit 36.4 % (34.1-44.9); Hemoglobin 11.7 g/dL (11.2-15.7); Lymphocytes # (Auto) 1.46 K/mcL (1.50-4.80); Lymphocytes % (Auto) 10.7 % (15.5-49.0); Mean Cell Volume 93.8 fL (80.0-100.0); Mean Corpuscular HGB Conc 32.1 g/dL (31.0-36.0); Mean Platelet Volume 10.5 fL (7.4-10.4); Monocytes # (Auto) 0.78 K/mcL (0.10-0.90); Monocytes % (Auto) 5.7 % (1.0-12.0); Neutrophils % (Auto) 83.1 % (38.0-78.0); Platelet Count 261 K/mcL (140-440); RBC 3.88 M/mcL (3.59-5.38); WBC 13.7 K/mcL (4.5-11.0)
[2021-06-29] MEDS: OMEPRAZOLE 20 MG CAPSULE PO SCH (07:48)
[2021-06-29] MEDS: FLUoxetine HCL 20 MG CAPSULE PO SCH (07:49)
[2021-06-29] MEDS: METOPROLOL SUCCINATE 25 MG TAB.XL.24H PO SCH (07:49)
[2021-06-29] MEDS: ATORVASTATIN 40 MG TABLET PO SCH (07:49)
[2021-06-29] MEDS: DESIPRAMINE 10 MG PO SCH (07:49)
[2021-06-29] MEDS: FLUTICASONE/SALMETEROL 250/50 INHALER #14 INH SCH ×3 (07:50→20:37)
--- NOTE | 2021-06-29 07:55 | Internal Med Progress Note ---
SUBJECTIVE Subjective Patient information: Note initiated : 06/29/21 at 7:53 am Service Date, if different from initiated Date: [] Patient: Keyla Levy a 81 y/o F admitted on 06/28/21 for weakness. Chief Complaint: [] Interval history: History of present illness: Ms. Levy is a 81 year old F presented to ED with Weakness and Fall/Syncope. Denies hitting her head. Denies chest pain shortness of breath. She has had diarrhea started about a week ago after she got on antibiotics for an upper respiratory tract infection. The diarrhea seemed to improve but then worsened again today. Sessile she has a little bit of a stomachache. In the ED she was found to have bright red blood in stool in ED, FOBT positive in ED. She was also Orthostatic in the ED. Dr. Muñoz was contacted and will do endoscopy in AM. c. diff and other stool studies are pending. 06/29 Poor sleep because of bowel prep but otherwise no new complaints. C. difficile test negative. Stool culture negative. Afebrile. Mild hyponatremia. Review of Systems: denies headache/fever/chills/nausea/vomiting/chest or abdominal pain/cough/dyspnea. Otherwise see above. Constitutional Vitals: Vital Signs Temp Pulse Resp BP Pulse Ox 97.5 F 92 H 20 139/70 96 06/29/21 06:47 06/29/21 06:47 06/29/21 06:47 06/29/21 06:47 06/29/21 06:47 Period Temp Pulse Resp BP Sys/Bolanos Pulse Ox Last 24 Hr 96.8 F-98.8 F 61-105 14-27 100-156/55-99 90-99 Intake and Output 06/28/21 06/29/21 06/29/21 21:59 05:59 13:59 Intake Total 400 Output Total 800 3275 Balance -800 -2875 Weight 77.791 kg Intake & Output: Intake & Output 06/28/21 06/29/21 06/29/21 21:59 05:59 13:59 Intake Total 400 Output Total 800 3275 Balance -800 -2875 Weight 77.791 kg Intake: Oral 400 Output: Urine Catheter Amount 800 Straight Cath #2 400 Void Amount 525 Urine/Stool Mix 2750 Other: Urine Appearance Clear Small Blood Clots Straight Cath #2 Clear Urine Color Pale Blood Tinged Straight Cath #2 Pale Urine Odor Normal Straight Cath #2 Normal Stool Size Small Small Stool Color Bright Red Blood Brown Stool Consistency Soft Liquid Liquid Watery Exam: General: Alert, Awake, No acute Distress Eyes/N/T: EOMI, , Head/Neck: neck supple, CV: RRR, No murmurs, Pulm: mild b/l wheezing, no rhonchi/rales Abd: soft, nontender, +BS x4 Ext: no clubbing/cyanosis, trace b/l LE edema Neuro: Alert, no focal deficits, moves all extremities, Skin: warm/dry OBJ DATA Labs CBC & Chem 7: 06/29/21 05:36 06/29/21 05:36 Labs: Abnormal Lab Results 06/29/21 06/28/21 06/28/21 05:36 21:38 11:22 WBC 13.7 H 14.5 H MPV 10.5 H Neut % (Auto) 83.1 H 84.6 H Lymph % (Auto) 10.7 L 8.7 L Lymph # (Auto) 1.46 L 1.26 L Absolute Neutrophils 11.35 H 12.29 H POC Chloride POC Total CO2 POC BUN POC Creatinine POC Glucose POC Troponin I 0 L 06/28/21 10:25 WBC MPV Neut % (Auto) Lymph % (Auto) Lymph # (Auto) Absolute Neutrophils POC Chloride 93 L POC Total CO2 31 H POC BUN 36 H POC Creatinine 1.5 H POC Glucose 164 H POC Troponin I Meds: Medications Acetaminophen (Acetaminophen 325 Mg Tablet) 650 mg PO Q6HP PRN; Protocol PRN Reason: Per Pain Protocol/Fever > 101 Albuterol/Ipratropium (Ipratropium/Albuterol 3 Ml Ampul.Neb) 3 ml NEB Q4HP PRN PRN Reason: Shortness Of Breath Lipase/Protease/Amylase (Lipase/Protease/Amylase 1 Cap Capsule) 4 cap PO TIDCC [facility] Last Admin: 06/29/21 07:15 Dose: Not Given Documented by: Atorvastatin Calcium (Atorvastatin 40 Mg Tablet) 80 mg PO QDAY [facility] Last Admin: 06/29/21 07:49 Dose: 80 mg Documented by: Desipramine HCl (Desipramine 10 Mg Tablet) 10 mg PO DAILY [facility] Last Admin: 06/29/21 07:49 Dose: Not Given Documented by: Diphenhydramine HCl (Diphenhydramine 25 Mg Capsule) 25 mg PO HSP PRN PRN Reason: Sleep Fluoxetine HCl (Fluoxetine Hcl 20 Mg Capsule) 20 mg PO QDAY [facility] Last Admin: 06/29/21 07:49 Dose: 20 mg Documented by: Hydralazine HCl (Hydralazine 20 Mg/Ml Vial) 0 mg IV Q2HP PRN PRN Reason: Hypertension Potassium Chloride 40 meq/ (Dextrose) 520 mls @ 130 mls/hr IV UD PRN PRN Reason: Potassium < 3 Magnesium Sulfate (Magnesium Sulfate) 2 gm in 50 mls @ 50 mls/hr IV UD PRN PRN Reason: Magnesium </= 1.6 Sodium Chloride (Sodium Chloride 0.9%) 1,500 mls @ 75 mls/hr IV .Q20H [facility] Stop: 06/29/21 09:59 Last Admin: 06/28/21 16:12 Dose: 75 mls/hr Documented by: Metoprolol Succinate (Metoprolol Succinate 25 Mg Tab.Xl.24h) 25 mg PO QDAY [facility] Last Admin: 06/29/21 07:49 Dose: 25 mg Documented by: Omeprazole (Omeprazole 20 Mg Capsule) 40 mg PO ACB [facility] Last Admin: 06/29/21 07:48 Dose: 40 mg Documented by: Ondansetron HCl (Ondansetron 4 Mg/2 Ml Vial) 4 mg IV Q4HP PRN PRN Reason: Nausea And Vomiting Last Admin: 06/28/21 23:58 Dose: 4 mg Documented by: Diclofenac Sodium 1% (Topical Gel) 1 dose TOPICAL QID [facility] Last Admin: 06/29/21 07:44 Dose: Not Given Documented by: Potassium Chloride (Potassium Chloride 20 Meq Tablet) 40 meq PO UD PRN PRN Reason: Potssium is 3-3.5 Potassium Chloride (Potassium Chloride 20 Meq Tablet) 40 meq PO UD PRN PRN Reason: Potassium < 3 Propranolol HCl (Propranolol 60 Mg Cap.Xl.24h) 60 mg PO DAILY [facility] Fluticasone/Salmeterol (Fluticasone/Salmeterol 250/50 Inhaler #14) 1 puff INH BID [facility] Last Admin: 06/28/21 21:02 Dose: Not Given Documented by: Sodium Chloride (0.9 % Sodium Chloride 10 Ml Syringe) 10 ml IV Q8 [facility] Last Admin: 06/29/21 04:29 Dose: Not Given Documented by: A/P Narrative A/P Narrative: A: *GI Bleed, likely Lower: *Orthostatic Hypotension/Syncope: *Generalized weakness/Fallin/2 above *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 Muñoz for consult -hold ASA -hold home Lasix for orthostatic hypotension, restart BB -home O2 supp -cont psych meds -pt/ot -CM for placement needs -ppx: SCD (no chemical d/t bleeding) / home ppi Time Spent With Patient Time: Total time spent is greater than 50% in coordination of care (as documented) at patient's floor/unit and/or counseling patient: QUALITY VTE Deep Vein Thrombosis/Pulmonary Embolism Present on Admission: No
[2021-06-29 08:00] LABS: ALT/SGPT 48 U/L (<40); AST/SGOT 31 U/L (<32); Albumin 3.3 gm/dL (3.2-5.2); Albumin/Globulin Ratio 1.4 (1.0-2.3); Alkaline Phosphatase 70 U/L (39-117); Bilirubin,Direct 0.2 mg/dL (<0.3); Bilirubin,Total 0.8 mg/dL (0.1-1.0); Blood Urea Nitrogen 21 mg/dL (8-23); Calcium 8.2 mg/dL (8.6-10.4); Carbon Dioxide 26 mmol/L (22-30); Chloride 94 mmol/L (96-108); Globulin 2.3 gm/dL (2.2-3.7); Glomerular Filtration Rate 60; Glucose 112 mg/dL (70-105); Lactate Dehydrogenase 231 U/L (135-225); Phosphorous 2.7 mg/dL (2.5-4.5); Triglycerides 103 mg/dL (<150); Uric Acid 6.1 mg/dL (2.5-8.0)
[2021-06-29] MEDS: 0.9 % SODIUM CHLORIDE 1,500 ML IV SCH (08:06)
[2021-06-29] MEDS ORDERED: KETAMINE 50 MG/ML ML IV PRN (08:50)
[2021-06-29] MEDS ORDERED: PROPOFOL 200 MG/20 ML VIAL IV SCH (09:00)
[2021-06-29] MEDS ORDERED: MIDAZOLAM 2 MG/2 ML VIAL IV SCH (09:00)
[2021-06-29] MEDS: PROPRANOLOL 60 MG CAP.XL.24H PO SCH (10:36)
[2021-06-29] MEDS: SODIUM CHLORIDE 1 GM TABLET PO SCH ×3 (10:37→20:21)
[2021-06-29] MEDS ORDERED: 0.9 % SODIUM CHLORIDE 1,000 ML IV ONE (14:48)
--- NOTE | 2021-06-29 14:53 | Discharge Summary ---
Discharge Provider Provider Patient information: Note initiated : 06/29/21 at 2:47 pm Service Date, if different from initiated Date: [] Patient: Keyla Levy 81 y/o F admitted on 06/28/21 for weakness. Chief Complaint: [] Date of admission: 06/28/21 14:55 Discharge date: 06/30/21 Primary care physician: Jennifer Seay DO Consults: 06/28/21 12:45 Consult to Physician [CONS] Stat Comment: Consulting Provider: Bolivar Muñoz Reason For Exam: Physician to Consult 06/28/21 12:46 Consult to Physician [CONS] Stat Comment: Consulting Provider: Darnell Olson Reason For Exam: Physician to Consult Discharge Meds Discharge Medications Home Medications aspirin 81 mg tablet,delayed release 81 mg PO QDAY tab 10/23/14 [History Confirmed 06/28/21 Last Taken 04/25/21] magnesium oxide 400 mg PO QDAY cap 06/27/17 [History Confirmed 06/28/21 Last Taken 04/25/21] ljyeui-otzjgvdy-ovsuhws 36,000-114,000-180,000 unit capsule,delay rel (Creon) 4 cap PO TID cap 02/28/19 [History Confirmed 06/28/21 Last Taken 04/25/21] omega 4-rsj-ejk-fish oil 1,200 mg (144 mg-216 mg) capsule (Fish Oil) 1 cap PO DAILY 12/02/19 [History Confirmed 06/28/21 Last Taken 04/25/21] calcium carbonate 1,200 mg PO QDAY 08/06/20 [History Confirmed 06/28/21 Last Taken 04/25/21] cholecalciferol (vitamin D3) 25 mcg (1,000 unit) capsule 2,000 unit PO QDAY cap 08/06/20 [History Confirmed 06/28/21 Last Taken 04/25/21] desipramine 10 mg tablet 10 mg PO QDAY tab 08/06/20 [History Confirmed 06/28/21 Last Taken 04/25/21] dextromethorphan-guaifenesin [Mucinex DM] 1 tab PO .q6 PRN 09/18/20 [History Confirmed 06/28/21 Last Taken 04/25/21] ipratropium bromide 42 mcg (0.06 %) nasal spray 2 spray INTRANASAL TID 09/18/20 [History Confirmed 06/28/21 Last Taken 04/25/21] diclofenac sodium 1 % topical gel (Arthritis Pain (diclofenac)) 2 g TOPICAL QID #100 g 10/22/20 [Rx Confirmed 06/28/21 Last Taken 04/25/21] tiotropium bromide 2.5 mcg/actuation mist for inhalation (Spiriva Respimat) See Rx Instructions .ROUTE .COMPLEX #12 g 01/05/21 [Rx Confirmed 06/28/21 Last Taken 04/25/21] omeprazole 40 mg capsule,delayed release 40 mg PO QDAY #90 cap 02/01/21 [Rx Confirmed 06/28/21 Last Taken 04/25/21] metoprolol succinate 25 mg tablet,extended release 24 hr 50 mg PO QDAY #180 tab 02/24/21 [Rx Confirmed 06/28/21 Last Taken 04/25/21] furosemide 20 mg tablet (Lasix) 20 mg PO QDAY #90 tab 03/23/21 [Rx Confirmed 06/28/21 Last Taken 04/25/21] fluoxetine 20 mg capsule (Prozac) 20 mg PO QDAY #90 cap 03/25/21 [Rx Confirmed 06/28/21 Last Taken 04/25/21] propranolol 60 mg capsule,24 hr,extended release 60 mg PO QDAY #90 cap 03/29/21 [Rx Confirmed 06/28/21 Last Taken 04/25/21] ipratropium 20 mcg-albuterol 100 mcg/actuation mist for inhalation (Combivent Respimat) See Rx Instructions .ROUTE .COMPLEX #4 g 05/29/21 [Rx Confirmed 06/28/21 Last Taken Unknown] atorvastatin 80 mg tablet 80 mg PO QDAY #90 tab 06/04/21 [Rx Confirmed 06/28/21 Last Taken Unknown] fluticasone 250 mcg-salmeterol 50 mcg/dose blistr powdr for inhalation (Advair Diskus) 1 inh INHALATION Q12H 90 Days #180 ea 06/22/21 [Rx Confirmed 06/28/21 Last Taken Unknown] diphenhydramine 25 mg-acetaminophen 500 mg tablet (Tylenol PM Extra Strength) 1 tab PO QHS PRN 06/28/21 [History Confirmed 06/28/21 Last Taken Unknown] COURSE Hospital Course Hospital course: Interval history: History of present illness: Ms. Levy is a 81 year old F presented to ED with Weakness and Fall/Syncope. Denies hitting her head. Denies chest pain shortness of breath. She has had diarrhea started about a week ago after she got on antibiotics for an upper respiratory tract infection. The diarrhea seemed to improve but then worsened again today. Sessile she has a little bit of a stomachache. In the ED she was found to have bright red blood in stool in ED, FOBT positive in ED. She was also Orthostatic in the ED. Dr. Muñoz was contacted and will do endoscopy in AM. c. diff and other stool studies are pending. 06/29 Poor sleep because of bowel prep but otherwise no new complaints. C. difficile test negative. Stool culture negative. Afebrile. Mild hyponatremia. 06/30 Patient feeling well today. GI evaluated colonoscopy and found that it was GI bleeding likely from ischemic colitis from the splenic flexure to the descending colon. 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 -Remain hydrated -CHRISTIAN stockings Discharge diagnosis: GI bleed from ischemic colitis orthostatic hypotension syncope Secondary discharge diagnosis: Generalized weakness falling COPD CKD hypertension depression anxiety bipolar GERD Time Spent with Patient Time attestation: Total time spent providing and/or coordinating discharge services: Time spent: Greater than 30 minutes EXAM Constitutional Vitals: Temp Pulse Resp BP Pulse Ox 97.7 F 82 20 117/55 100 06/29/21 14:25 06/29/21 14:30 06/29/21 14:30 06/29/21 14:30 06/29/21 14:30 Discharge Data Data Completed and Pending Labs on day of discharge: Labs from last 24 hours 06/29/21 06/29/21 06/28/21 05:36 05:36 21:38 WBC 13.7 H 14.5 H RBC 3.88 3.80 Hgb 11.7 11.6 Hct 36.4 35.7 MCV 93.8 93.9 MCH 30.2 30.5 MCHC 32.1 32.5 RDW 12.0 12.1 Plt Count 261 265 MPV 10.5 H 10.1 Neut % (Auto) 83.1 H 84.6 H Lymph % (Auto) 10.7 L 8.7 L Green % (Auto) 5.7 6.1 Eos % (Auto) 0.4 0.5 Baso % (Auto) 0.1 0.1 Lymph # (Auto) 1.46 L 1.26 L Green # (Auto) 0.78 0.89 Eos # (Auto) 0.05 0.07 Baso # (Auto) 0.02 0.02 Absolute Neutrophils 11.35 H 12.29 H Sodium 131 L Potassium 4.2 Chloride 94 L Carbon Dioxide 26 Anion Gap 11.0 BUN 21 Creatinine 0.9 GFR Calculation 60 Glucose 112 H Uric Acid 6.1 Calcium 8.2 L Phosphorus 2.7 Magnesium 1.8 Total Bilirubin 0.8 Direct Bilirubin 0.2 GGT 23 AST 31 ALT 48 H Alkaline Phosphatase 70 Lactate Dehydrogenase 231 H Total Protein 5.6 L Albumin 3.3 Globulin 2.3 Albumin/Globulin Ratio 1.4 Triglycerides 103 Discharge Plan Patient/Caregiver Discharge Instructions Activity: increase activity as tolerated Diet: Regular Diet Activity Restrictions/Additional Instructions: f/u with Jasmyn Hardin, ?07/07/2021 @ 11:15. Monitor blood pressure twice daily keep log and bring to PCP. Follow-up with PCP in 3 to 7 days. Prescriptions: Continued Spiriva Respimat 2.5 mcg/actuation mist See Rx Instructions .ROUTE .COMPLEX Qty: 12 6RF Dose Instruction: USE 2 INHALATIONS DAILY (RINSE MOUTH AFTER EACH USE) Rx Instructions: USE 2 INHALATIONS DAILY (RINSE MOUTH AFTER EACH USE) omeprazole 40 mg capsule,delayed release(DR/EC) 40 mg PO QDAY Qty: 90 1RF metoprolol succinate 25 mg tablet extended release 24 hr 50 mg PO QDAY Qty: 180 0RF furosemide [Lasix] 20 mg tablet 20 mg PO QDAY Qty: 90 1RF fluoxetine [Prozac] 20 mg capsule 20 mg PO QDAY Qty: 90 1RF propranolol 60 mg capsule,extended release 24 hr 60 mg PO QDAY Qty: 90 1RF Combivent Respimat 20-100 mcg/actuation mist See Rx Instructions .ROUTE .COMPLEX Qty: 4 1RF Dose Instruction: USE 1 INHALATION FOUR TIMES A DAY NEEDED FOR SHORTNESS OF BREATH Rx Instructions: USE 1 INHALATION FOUR TIMES A DAY NEEDED FOR SHORTNESS OF BREATH atorvastatin 80 mg tablet 80 mg PO QDAY Qty: 90 1RF fluticasone propion-salmeterol [Advair Diskus] 250-50 mcg/dose blister with device 1 inh INHALATION Q12H 90 Days Qty: 180 0RF judntm-fzfqgcse-qwoxqwp 36,000-114,000-180,000 unit capsule,delay rel 36,000-114,000- 180,000 unit capsule,delayed release(DR/EC) 4 cap PO TID 0RF Rx Instructions: and 2 pills with snacks aspirin 81 mg tablet,delayed release (DR/EC) 81 mg PO QDAY 0RF magnesium oxide 400 mg capsule 400 mg PO QDAY 0RF cholecalciferol (vitamin D3) 25 mcg (1,000 unit) capsule 2,000 unit PO QDAY 0RF Rx Instructions: administer with meals ipratropium bromide 42 mcg (0.06 %) spray,non-aerosol 2 spray intranasal TID 0RF Rx Instructions: administer into each nostril dextromethorphan-guaifenesin [Mucinex DM] 1 tab PO .q6 PRN (Reason: PRN) 0RF desipramine 10 mg tablet 10 mg PO QDAY 0RF calcium carbonate 1,200 mg PO QDAY 0RF diclofenac sodium [Arthritis Pain (diclofenac)] 1 % gel 2 g topical QID Qty: 100 0RF Rx Instructions: apply to single elbow, wrist or hand; for hand includes palm/fingers/back of hand omega 1-jnr-jik-fish oil [Fish Oil] 1,200 (144-216) mg Capsule 1 cap PO DAILY 0RF diphenhydramine-acetaminophen [Tylenol PM Extra Strength] 25-500 mg Tablet 1 tab PO QHS PRN (Reason: Sleep) 0RF Follow Up Plan Follow up with: Jasmyn Hardin ARNP [Nurse Practitioner] - Jennifer Seay DO [Primary Care Provider] - Patient Disposition: Home, Self-Care Prognosis: Fair Overall status at discharge: patient is back to baseline Discharge Orders: Discharge Order (Routine); Ordered 06/30/21 Ordered By: Darnell Olson [facility] VTE Deep Vein Thrombosis/Pulmonary Embolism Present on Admission: No
[2021-06-30] MEDS: 0.9 % SODIUM CHLORIDE 10 ML SYRINGE IV SCH (04:11)
[2021-06-30] MEDS: LIPASE/PROTEASE/AMYLASE 1 CAP CAPSULE PO SCH (07:37)
[2021-06-30] MEDS: OMEPRAZOLE 20 MG CAPSULE PO SCH (07:37)
--- NOTE | 2021-06-30 08:15 | EKG ---
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 Measurements Intervals [place] Rate: 67 P: 84 CA: 148 QRS: 0 QRSD: 139 T: 65 QT: 463 QTc: 489 Interpretive Statements Sinus rhythm Electronically Signed On 06-30-2021 8:15:14 PDT by Jun Nowak D.O. /[email or web address]/[email or web address]/[id number]
[2021-06-30] MEDS: ATORVASTATIN 40 MG TABLET PO SCH (08:42)
[2021-06-30] MEDS: METOPROLOL SUCCINATE 25 MG TAB.XL.24H PO SCH (08:42)
[2021-06-30] MEDS: DICLOFENAC SODIUM 1% TOPICAL GEL TOPICAL SCH (08:43)
[2021-06-30] MEDS: FLUoxetine HCL 20 MG CAPSULE PO SCH (08:43)
[2021-06-30] MEDS: SODIUM CHLORIDE 1 GM TABLET PO SCH (08:43)
[2021-06-30] MEDS: FLUTICASONE/SALMETEROL 250/50 INHALER #14 INH SCH (08:43)
[2021-06-30] MEDS: DESIPRAMINE 10 MG PO SCH (08:43)
--- NOTE | 2021-06-30 09:15 | Colonoscopy Procedure Note ---
Colonoscopy Procedure Notes Procedure Information Patient information: Note initiated : 06/30/21 at 9:13 am Service Date: 06/29/21 Patient: Keyla Levy 81 y/o F admitted on 06/28/21 for weakness. Pre-op diagnosis general: Hematochezia. Post-op diagnosis general: Ischemic colitis. Procedure: Colonoscopy with Bx Procedure narrative: The procedure, alternatives and risks were discussed with the patient and the patient's questions were answered. With endoscopist-administered intravenous sedation, the Olympus colonoscope was introduced into the rectum and advanced to the cecum. Ileocecal valve was identified, intubated, and several centimeters of the terminal ileum were examined and appeared normal. Ischemic changes were seen extending from the splenic flexure to the distal descending colon; this was biopsied. Rare uncomplicated diverticula were seen. Assessment: Ischemic colitis. Advance diet. Prognosis is good.
[2021-06-30] MEDS: PROPRANOLOL 60 MG CAP.XL.24H PO SCH (09:52)
== END 2021-06-30 11:15 | disposition home or self-care (01) ==
LOC: MEDSUR 10:07 → ED 10:07 → MEDSUR 14:57
PROVIDERS: ADMIT Internal Medicine; ATTEND Internal Medicine

== ENCOUNTER 2024-03-22 12:40 | Inpatient (IN) ==
[2024-03-22] MEDS ORDERED: IOPAMIDOL 100 ML BOTTLE IV ONE (12:41)
[2024-03-22 13:24] LABS: Basophils # (Auto) 0.02 K/mcL (0.00-0.30); Basophils % (Auto) 0.2 % (0.0-2.0); Eosinophils # (Auto) 0.01 K/mcL (0.00-0.70); Eosinophils % (Auto) 0.1 % (0.0-7.0); Hematocrit 36.5 % (34.1-44.9); Hemoglobin 11.5 g/dL (11.2-15.7); Lymphocytes # (Auto) 0.46 K/mcL (1.50-4.80); Lymphocytes % (Auto) 5.7 % (15.5-49.0); Mean Cell Volume 97.6 fL (80.0-100.0); Mean Corpuscular HGB Conc 31.5 g/dL (31.0-36.0); Mean Platelet Volume 10.1 fL (8.8-12.5); Monocytes # (Auto) 0.53 K/mcL (0.10-0.90); Monocytes % (Auto) 6.6 % (1.0-12.0); Neutrophils % (Auto) 87.2 % (38.0-78.0); Platelet Count 219 K/mcL (140-440); RBC 3.74 M/mcL (3.59-5.38); Red Cell Distribution Width 12.7 % (11.5-14.5); WBC 8.1 K/mcL (4.5-11.0)
[2024-03-22] MEDS: 0.9 % SODIUM CHLORIDE 500 ML IV ONE ×2 (13:32→16:46)
[2024-03-22 13:41] LABS: Alcohol, Blood < 10.1 mg/dL; Alcohol,Blood < 0.010 gm/dL (<0.010)
[2024-03-22] MEDS: IPRATROPIUM/ALBUTEROL 3 ML AMPUL.NEB NEB ONE ×3 (13:49→17:44)
[2024-03-22 13:51] LABS: ALT/SGPT 43 U/L (<40); AST/SGOT 48 U/L (<32); Albumin/Globulin Ratio 1.3 (1.0-2.3); Alkaline Phosphatase 88 U/L (39-117); Bilirubin,Total 1.2 mg/dL (0.1-1.0); Blood Urea Nitrogen 30 mg/dL (8-23); Calcium 9.2 mg/dL (8.6-10.4); Carbon Dioxide 27 mmol/L (22-30); Chloride 91 mmol/L (96-108); Globulin 3.1 gm/dL (2.2-3.7); Glomerular Filtration Rate 32; Glucose 141 mg/dL (70-105); Potassium 5.2 mmol/L (3.3-5.1); Prothrombin Time 13.5 sec (11.9-14.5); Sodium 132 mmol/L (133-145)
[2024-03-22 13:52] LABS: Thyroid Stimulating Hormone 0.79 uIU/mL (0.27-5.01)
[2024-03-22 14:53] LABS: Free T4 (Free Thyroxine) 1.39 ng/dL (0.93-1.70)
[2024-03-22 15:22] LABS: Amphetamine Screen,Urine None detected; Barbiturate Screen,Urine None detected; Benzodiazepines Screen,Urine None detected; Cannabinoid Screen,Urine None detected; Cocaine Screen,Urine None detected; Fentanyl, Urine Screen None Detected; Opiate Screen,Urine None detected; Oxycodone, Urine Screen None detected; Phencyclidine Screen,Urine None detected
[2024-03-22 15:33] LABS: Appearance,Urine HAZY (Clear); Bacteria,Urine FEW /hpf (0); Bilirubin,Urine Negative (Negative); Color,Urine YELLOW; Glucose,Urine (UA) Negative (Negative); Ketones,Urine Negative (Negative); Leukocyte Esterase,Urine 500 /uL (Negative); Mucus,Urine FEW /hpf; Nitrate,Urine Negative (Negative); Protein,Urine 100 mg/dL (Negative); Specific Gravity,Urine 1.015 (1.000-1.035); Urine RBC 12 /hpf (0-3); Urine Squamous Epithelial Cell 0 /hpf (0-4); Urine WBC > 182 /hpf (0-4); Urobilinogen,Urine Negative
[2024-03-22] MEDS: cefTRIAXone 1 GM VIAL IV ONE (15:58)
[2024-03-22] MEDS: ACETAMINOPHEN 1,000 MG/100 ML BAG IV ONE (17:36)
[2024-03-22] MEDS ORDERED: POTASSIUM CHLORIDE 20 MEQ TABLET PO PRN (19:45)
[2024-03-22] MEDS ORDERED: METOCLOPRAMIDE 10 MG/2 ML VIAL IV PRN (19:45)
[2024-03-22] MEDS ORDERED: POTASSIUM CHLORIDE 40 MEQ in DEXTROSE 5% IN WATER 500 ML IV PRN (19:45)
[2024-03-22] MEDS ORDERED: MAGNESIUM SULFATE 2 GM/50 ML BAG IV PRN (19:45)
[2024-03-22] MEDS ORDERED: SENNOSIDES 1 TABLET PO PRN (19:45)
[2024-03-22] MEDS: HEPARIN 5,000 UNIT/ML VIAL SQ SCH (20:57)
[2024-03-22] MEDS: DOCUSATE SODIUM 100 MG CAPSULE PO SCH (20:57)
[2024-03-22] MEDS: 0.9 % SODIUM CHLORIDE 1,000 ML IV ONE (20:57)
[2024-03-22] MEDS: 0.9 % SODIUM CHLORIDE 10 ML SYRINGE IV SCH (20:58)
[2024-03-23] MEDS: ACETAMINOPHEN 325 MG TABLET PO PRN (04:14)
[2024-03-23] MEDS: POLYETHYLENE GLYCOL 3350 17 GM PACKET PO PRN (04:14)
[2024-03-23 06:46] LABS: ALT/SGPT 51 U/L (<40); AST/SGOT 54 U/L (<32); Albumin 3.2 gm/dL (3.2-5.2); Albumin/Globulin Ratio 1.1 (1.0-2.3); Alkaline Phosphatase 74 U/L (39-117); Bilirubin,Direct 0.3 mg/dL (<0.3); Bilirubin,Total 0.5 mg/dL (0.1-1.0); Blood Urea Nitrogen 32 mg/dL (8-23); Calcium 8.2 mg/dL (8.6-10.4); Carbon Dioxide 25 mmol/L (22-30); Chloride 95 mmol/L (96-108); Globulin 2.8 gm/dL (2.2-3.7); Glomerular Filtration Rate 32; Glucose 109 mg/dL (70-105); Lactate Dehydrogenase 230 U/L (135-225); Phosphorous 4.2 mg/dL (2.5-4.5); Potassium 4.2 mmol/L (3.3-5.1); Sodium 133 mmol/L (133-145); Triglycerides 109 mg/dL (<150); Uric Acid 7.2 mg/dL (2.5-8.0)
[2024-03-23 06:52] LABS: Hematocrit 33.1 % (34.1-44.9); Hemoglobin 10.2 g/dL (11.2-15.7); Mean Cell Volume 99.7 fL (80.0-100.0); Mean Corpuscular HGB Conc 30.8 g/dL (31.0-36.0); Mean Platelet Volume 10.7 fL (8.8-12.5); Platelet Count 177 K/mcL (140-440); RBC 3.32 M/mcL (3.59-5.38); Red Cell Distribution Width 13.2 % (11.5-14.5); WBC 8.4 K/mcL (4.5-11.0)
[2024-03-23] MEDS ORDERED: ACETAMINOPHEN/DIPHENHYDRAMINE 1 TABLET PO PRN (07:49)
[2024-03-23] MEDS: cefTRIAXone 1 GM VIAL IV SCH (08:55)
[2024-03-23] MEDS: OMEPRAZOLE 20 MG CAPSULE PO SCH (08:56)
[2024-03-23] MEDS: FLUoxetine HCL 20 MG CAPSULE PO SCH (08:56)
[2024-03-23] MEDS: ASPIRIN 81 MG TAB.CHEW PO SCH (08:56)
[2024-03-23] MEDS: PROPRANOLOL 60 MG CAP.XL.24H PO SCH (08:56)
[2024-03-23] MEDS: METOPROLOL SUCCINATE 25 MG TAB.XL.24H PO SCH (08:56)
[2024-03-23 10:16] LABS: Band Neutrophils % 5 % (0-10); Lymphocytes % 8 % (15-49); Monocytes % (Manual) 8 % (1-12); Platelet Estimate NORMAL (Normal); RBC Morphology NORMAL (Normal); Segmented Neutrophils % 79 % (38-78)
[2024-03-23] MEDS ORDERED: DIATRIZOATE MEGLU/DIATRIZO SOD 30 ML BOTTLE PO ONE (10:59)
[2024-03-23] MEDS: Linaclotide [Linzess] 145 mcg capsule PO SCH (12:37)
[2024-03-23] MEDS: Budesonide-Glycopyr-Formoterol [Breztri Aerosphere] Inhaler INH SCH (12:37)
[2024-03-23] MEDS: [UNRECOGNIZED DRUG - OTHER] PO SCH (12:37)
[2024-03-23] MEDS: LIPASE PROTEASE AMYLASE PO SCH ×2 (12:37→16:54)
[2024-03-23] MEDS ORDERED: LIPASE PROTEASE AMYLASE PO PRN (15:05)
[2024-03-23] MEDS: ATORVASTATIN 40 MG TABLET PO SCH (21:35)
[2024-03-23] MEDS: IPRATROPIUM/ALBUTEROL 3 ML AMPUL.NEB NEB PRN (21:52)
[2024-03-24 06:08] LABS: Basophils # (Auto) 0.01 K/mcL (0.00-0.30); Basophils % (Auto) 0.2 % (0.0-2.0); Eosinophils # (Auto) 0.07 K/mcL (0.00-0.70); Eosinophils % (Auto) 1.2 % (0.0-7.0); Hematocrit 31.4 % (34.1-44.9); Hemoglobin 9.8 g/dL (11.2-15.7); Lymphocytes # (Auto) 0.62 K/mcL (1.50-4.80); Lymphocytes % (Auto) 10.3 % (15.5-49.0); Mean Cell Volume 99.1 fL (80.0-100.0); Mean Corpuscular HGB Conc 31.2 g/dL (31.0-36.0); Mean Platelet Volume 10.6 fL (8.8-12.5); Monocytes # (Auto) 0.91 K/mcL (0.10-0.90); Monocytes % (Auto) 15.1 % (1.0-12.0); Platelet Count 197 K/mcL (140-440); RBC 3.17 M/mcL (3.59-5.38)
[2024-03-24 06:41] LABS: ALT/SGPT 77 U/L (<40); AST/SGOT 83 U/L (<32); Albumin 3.2 gm/dL (3.2-5.2); Albumin/Globulin Ratio 1.3 (1.0-2.3); Alkaline Phosphatase 72 U/L (39-117); Bilirubin,Direct 0.2 mg/dL (<0.3); Bilirubin,Total 0.4 mg/dL (0.1-1.0); Blood Urea Nitrogen 23 mg/dL (8-23); Calcium 8.1 mg/dL (8.6-10.4); Carbon Dioxide 26 mmol/L (22-30); Chloride 96 mmol/L (96-108); Globulin 2.5 gm/dL (2.2-3.7); Glomerular Filtration Rate 46; Glucose 107 mg/dL (70-105); Lactate Dehydrogenase 253 U/L (135-225); Phosphorous 3.2 mg/dL (2.5-4.5); Sodium 133 mmol/L (133-145); Triglycerides 164 mg/dL (<150); Uric Acid 6.6 mg/dL (2.5-8.0)
[2024-03-24] MEDS: IPRATROPIUM/ALBUTEROL 3 ML AMPUL.NEB NEB ONE (09:19)
[2024-03-24] MEDS: ONDANSETRON 4 MG/2 ML VIAL IV PRN (18:05)
[2024-03-24] MEDS: POTASSIUM CHLORIDE 20 MEQ TABLET PO PRN (18:05)
[2024-03-25 03:57] VITALS: O2SAT 98
[2024-03-25 11:46] VITALS: TEMP 98.2
== END 2024-03-25 13:37 | DRG 871 ==
LOC: ED 12:40 → MEDSUR 18:53
PROVIDERS: ADMIT Internal Medicine; ATTEND Internal Medicine